=== PATIENT | male | born 1975 | race Caucasian/White ===

== ENCOUNTER 2018-08-24 20:17 | Inpatient (IN) | payer SELFPAY ==
[2018-08-24] MEDS ORDERED: SODIUM CHLORIDE 0.9% 500 ML INFUS.BAG IV ONE (22:22)
--- NOTE | 2018-08-24 22:36 | PDOC ---
History of Present Illness - General Chief Complaint: Redness To Affected Area Stated Complaint: INFECTION IN RT FOOT Time Seen by Provider: 08/24/18 22:09 - History of Present Illness Initial Comments: 08/24/18 22:35 CHIEF COMPLAINT: redness/swelling to foot HISTORY OF PRESENT ILLNESS: 43 yo M with no significant PMH presents to ED with redness and pain to R foot x 5 days. Patient states he received a pedicure 6 days ago and then noticed that he had a "bump" on his right fourth toe a day later. He states that since then the bump has gotten bigger and now he has pain and redness extending all the way up his R foot and ankle. Patient denies any fever but reports chills, has had one episode of vomiting this morning. Denies diarrhea. No recent travel or sick contacts. PAST MEDICAL HISTORY: Denies past medical history FAMILY HISTORY: Denies SOCIAL HISTORY: Denies tobacco, alcohol, illicit drug use. SURGICAL HISTORY: Denies ALLERGIES: No known drug allergies REVIEW OF SYSTEMS General/Constitutional: Denies fever or chills. Denies weakness, weight change. HEENT: Denies change in vision. Denies ear pain or discharge. Denies sore throat. Cardiovascular: Denies chest pain or shortness of breath. Respiratory: Denies cough, wheezing, or hemoptysis. Gastrointestinal: Denies nausea, vomiting, diarrhea or constipation. Denies rectal bleeding. Genitourinary: Denies dysuria, frequency, or change in urination. Musculoskeletal: Swelling and redness to R foot. Skin: Denies rash or easy bruising. Neurologic: Denies headache, vertigo, loss of consciousness, or loss of sensation. PHYSICAL EXAM General Appearance: Well-appearing, appropriately dressed. No apparent distress , no intoxication. HEENT: EOMI, PERRLA, normal ENT inspection, normal voice, TMs normal, pharynx normal. No conjunctival pallor. No photophobia, scleral icterus. Neck: Supple. Trachea midline. No tenderness, rigidity, carotid bruit, stridor , lymphadenopathy, or thyromegaly. Respiratory/Chest: Lungs CTAB. No shortness of breath, chest tenderness, respiratory distress, accessory muscle use. No crackles, rales, rhonchi, stridor , wheezing, dullness Cardiovascular: RRR. S1, S2. No JVD, murmur, bradycardia, tachycardia. Vascular Pulses: Dorsalis-Pedis (R): 2+, Dorsalis-Pedis (L): 2+ Gastrointestinal/Abdominal: Normal bowel sounds. Abdomen soft, non-distended. No tenderness or rebound tenderness. No organomegaly, pulsatile mass, guarding , hernia, hepatomegaly, splenomegaly. Lymphatic: No adenopathy, tenderness. Musculoskeletal/Extremities: Abscess to lateral proximal aspect of R fourth toe with purulent discharge. Erythema extending from toe to right ankle and lower calf with mild TTP. Normal inspection. FROM of all extremities, normal capillary refill. Pelvis Stable. No CVA tenderness. No tenderness to extremities, pedal edema, swelling, erythema or deformity. Integumentary: Appropriate color, dry, warm. 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 Fully oriented, alert. Appropriate mood/affect. Motor strength 5/5. No appreciable EOM palsy, facial droop or sensory deficit. Past History - Past Medical History Allergies/Adverse Reactions: Allergies Allergy/AdvReac Type Severity Reaction Status Date / Time No Known Allergies Allergy Verified 08/24/18 20:27 COPD: No - Suicide/Smoking/Psychosocial Hx Smoking History: Never smoked *Physical Exam - Vital Signs Last Vital Signs Temp Pulse Resp BP Pulse Ox 98.3 F 99 H 18 125/88 97 08/24/18 20:24 08/24/18 20:24 08/24/18 20:24 08/24/18 20:24 08/24/18 20:24 ED Treatment Course - LABORATORY CBC & Chemistry Diagram: 08/24/18 22:57 08/24/18 22:57 - RADIOLOGY Radiology Studies Ordered: Category Date Time Status ANKLE & FOOT-RIGHT* [RAD] Stat Radiology 08/24/18 22:23 Ordered Medical Decision Making - Medical Decision Making 08/24/18 22:39 43 yo M with no significant PMH presents to ED with redness and pain to R foot x 5 days. Ddx: cellulitis, abscess, osteomyelitis, DVT -abscess already draining, expressed purulent discharge -labs -x-ray -fluids -wound cx 08/25/18 01:08 extensive cellulitis of right foot extending up ankle/leg, will admit for obs for first round of abx -clindamycin IV *DC/Admit/Observation/Transfer Diagnosis at time of Disposition: Cellulitis and abscess of foot - Discharge Dispostion Decision to Admit order: Yes - Referrals - Patient Instructions - Post Discharge Activity
[2018-08-24 23:19] LABS: BASO % 0.5 % (0-2.0); EOS % 2.3 % (0-4.5); HEMATOCRIT 40.8 % (35.4-49); HEMOGLOBIN 14.3 GM/dL (11.7-16.9); LYMPH % 20.8 % (8-40); MEAN CELL VOLUME 82.8 fl (80-96); MEAN PLT VOLUME 7.3 fl (7.5-11.1); MONO % 8.5 % (3.8-10.2); NEUT % 67.9 % (42.8-82.8); PLATELET COUNT 290 K/MM3 (134-434); RBC 4.93 M/mm3 (4.00-5.60); RDW 13.6 % (11.9-15.9); WHITE BLOOD COUNT 9.9 K/mm3 (4.0-10.0)
[2018-08-24 23:37] LABS: ALBUMIN 3.9 g/dl (3.4-5.0); BILIRUBIN,TOTAL 0.7 mg/dL (0.2-1); BLOOD UREA NITROGEN 19.2 mg/dL (7-18); CALCIUM 8.4 mg/dL (8.5-10.1); CREATININE 0.9 mg/dL (0.55-1.3); POTASSIUM 3.6 mmol/L (3.5-5.1); TOT PROT 7.5 g/dl (6.4-8.2)
[2018-08-25] MEDS ORDERED: CLINDAMYCIN 600MG PREMIX IVPB 600 MG/50 ML BAG IVPB ONE (01:02)
[2018-08-25] MEDS ORDERED: CLINDAMYCIN 900 MG PREMIX IVPB 900 MG/50 ML BAG IVPB ONE ×2 (01:07→01:31)
--- NOTE | 2018-08-25 02:55 | PN ---
Teaching Attending Note Name of Resident: Jett De Jesus ATTENDING PHYSICIAN STATEMENT I saw and evaluated the patient. I reviewed the resident's note and discussed the case with the resident. I agree with the resident's findings and plan as documented. SUBJECTIVE: Patient is a 43 year old man with no significant PMH presents to ER with redness and pain to Right foot x 5 days. Patient states he received a pedicure 6 days ago and then noticed that he had a "bump" on his right fourth toe a day later. He states that since then the bump has gotten bigger and now he has pain and redness extending all the way up his R foot and ankle. He probed the abscess with a "needle". Patient denies any fever but reports chills, has had one episode of vomiting this morning. Denies diarrhea, headache, chest pain, SOB, dysuria or abdominal pain. No recent travel or sick contacts. His mother has DM. OBJECTIVE: Alert Vital Signs Period Temp Pulse Resp BP Sys/Dsouza Pulse Ox Last 24 Hr 98.3 F-99.2 F 72-99 16-18 125-135/86-88 97-99 HEENT: No Jaundice, eye redness or discharge, PERRLA, EOMI. Normocephalic, atraumatic. External ears are normal and hearing is grossly intact. No nasal discharge. Neck: Supple, nontender. No palpable adenopathy or thyromegaly. No JVD Chest: Good effort. Clear to auscultation and percussion. Heart: Regular. No S3, rub or murmur Abdomen: Not distended, soft, nontender and no HSM. No rebound or guarding. Normal bowel sounds. Ext: Peripheral pulses intact. Right leg edema. Abscess and ulcer to lateral proximal aspect of right fourth toe with purulent discharge. Erythema extending from toe to right ankle and lower calf with mild tenderness. Skin: Warm and dry. No petechiae, rash or ecchymosis. Neuro: Alert. Oriented x3. CN 2-12 grossly intact. Sensation grossly intact in all four extremities and DTR are symmetric. Psych: Appropriate mood and affect. Good insight. Current Medications Generic Name Dose Route Start Last Admin Trade Name Freq PRN Reason Stop Dose Admin Enoxaparin Sodium 40 mg 08/25/18 10:00 Lovenox - SQ DAILY VICKY Abnormal Lab Results 08/24/18 08/24/18 22:57 22:57 MPV 7.3 L Chloride 109 H Anion Gap 7 L BUN 19.2 H Calcium 8.4 L ASSESSMENT AND PLAN: 1. Right fourth toe abscess and RLE cellulitis - Based on family history of DM and exposure at a nail saloon, will treat with IV vancomycin and zosyn pending wound culture report. No gas collection or significant abnormality on foot xray. Will get MRI of the right foot and HbA1c. Consult surgery for I&D. 2. Obesity Counseled on the risks associated with obesity. Will provide patient all the necessary assistance, counseling and positive reinforcement to facilitate weight loss. Consult fisher weir. 3. DVT prophylaxis - Lovenox 40 mg SQ q 24 hours. 4. Advance directives - Full code
--- NOTE | 2018-08-25 03:12 | HP ---
CHIEF COMPLAINT: Cellulitis PCP: None HISTORY OF PRESENT ILLNESS: 43 M with no significant PMH who describes swelling of his fourth toe on his right foot after he got a pedicure for the first time last . He noticed swelling of his toe 2 days later, and he decided to drain it by puncturing it. However after puncturing it, the swelling did not decrease and there was a serous fluid that was slowly draining from it. Prior to puncturing it he did not note any drainage. It was slightly erythematous. The toe was painful, and it was painful to ambulate and wear shoes. He denies anything like this ever happening before. He noted subjective fever with home temperatures of 97 F, and chills 2 days ago, and 1 episode of nausea and vomiting yesterday. The vomitus was described as clear and watery. He denies any chest pain, SOB, abdominal pain, diarrhea, headaches, dizziness, and numbness of the foot. ER course was notable for: (1)Clindamycin 900 mg was given (2)Ankle and Foot X-Ray was done which showed no bony abnormalities and no gas. (3)1L NS was given. Recent Travel: None PAST MEDICAL HISTORY: None Last visit to doctor ~10 years ago PAST SURGICAL HISTORY: None Social History: Smoking:Denies Alcohol:Denies Drugs: Denies Family History: Mother has Diabetes Allergies No Known Allergies Allergy (Verified 08/24/18 20:27) HOME MEDICATIONS: REVIEW OF SYSTEMS In addition to above CONSTITUTIONAL: Subjective fevers and chills Absent: diaphoresis, generalized weakness, malaise, loss of appetite, weight change HEENT: difficulty swallowing Absent: rhinorrhea, nasal congestion, throat pain CARDIOVASCULAR: Absent: chest pain, syncope, palpitations, lightheadedness, RESPIRATORY: Absent: cough, shortness of breath, dyspnea with exertion GASTROINTESTINAL: nausea, vomiting Absent: abdominal pain, abdominal distension,, diarrhea, constipation, melena, hematochezia GENITOURINARY: Absent: dysuria, frequency, urgency, hesitancy, hematuria, flank pain, genital pain MUSCULOSKELETAL: Absent: myalgia, arthralgia, joint swelling, back pain, neck pain SKIN: Absent: rash, itching, pallor NEUROLOGIC: Absent: headache, focal weakness or paresthesias, dizziness, PHYSICAL EXAMINATION Vital Signs - 24 hr 08/24/18 08/24/18 08/25/18 20:24 23:31 03:06 Temperature 98.3 F 99.2 F Pulse Rate 99 H Pulse Rate [ 72 76 Left Radial] Respiratory 18 16 Rate Blood Pressure 125/88 Blood Pressure 128/86 135/87 [Right Arm] O2 Sat by Pulse 97 98 99 Oximetry (%) GENERAL: Awake, alert, and fully oriented, in no acute distress. HEAD: Normal with no signs of trauma. EYES: Pupils equal, round and reactive to light, extraocular movements intact, sclera anicteric, conjunctiva clear. No lid lag. EARS, NOSE, THROAT: Ears normal, nares patent, oropharynx clear without exudates. Moist mucous membranes. NECK: Normal range of motion LUNGS: Breath sounds equal, clear to auscultation bilaterally. No wheezes, and no crackles. No accessory muscle use. HEART: Regular rate and rhythm, normal S1 and S2 without murmur, rub or gallop. ABDOMEN: Soft, nontender, not distended, normoactive bowel sounds. MUSCULOSKELETAL: Normal range of motion at all joints. No bony deformities or tenderness. No CVA tenderness. UPPER EXTREMITIES: 2+ pulses, warm, well-perfused. No cyanosis. No clubbing. No peripheral edema. LOWER EXTREMITIES: 2+ pulses, warm, well-perfused. Right foot, 4th toe, has serous fluid draining abscess on middle phalange. Toe is erythematous. Right foot is warm to touch and swollen. Left foot has no appreciable changes. Laboratory Results - last 24 hr 08/24/18 08/24/18 22:57 22:57 WBC 9.9 RBC 4.93 Hgb 14.3 Hct 40.8 MCV 82.8 MCH 29.0 MCHC 35.0 RDW 13.6 Plt Count 290 MPV 7.3 L Absolute Neuts (auto) 6.7 Neutrophils % 67.9 Lymphocytes % 20.8 Monocytes % 8.5 Eosinophils % 2.3 Basophils % 0.5 Nucleated RBC % 0 Sodium 144 Potassium 3.6 Chloride 109 H Carbon Dioxide 28 Anion Gap 7 L BUN 19.2 H Creatinine 0.9 Est GFR (CKD-EPI)AfAm 122.52 Est GFR (CKD-EPI)NonAf 105.71 Random Glucose 105 Calcium 8.4 L Total Bilirubin 0.7 AST 19 ALT 51 Alkaline Phosphatase 92 Total Protein 7.5 Albumin 3.9 ASSESSMENT/PLAN: 43 M with no significant PMH who presents today with likely diabetic foot injury due to FMH of diabetes, rapid spread of injury from toe to swelling of foot, and drainage of injury. 1) Diabetic foot wound Vancomycin 1500 mg BID Zoysn 3.375 Q8H ID consult HbA1c 2) Dysphagia vs GERD Patient noted some dysphagia and reflux symptoms upon ROS. Refer to outpatient GI 3)Lack of health maintenance Provide resources for patient to obtain medical insurance Refer to resident clinic DVT Prophylaxis: Lovenox 40 mg SQ QDaily F: No fluids E: Trend BMP N: Regular diet Dispo: Admit to medicine floors Problem List - Problem (1) Cellulitis and abscess of foot Code(s): L03.119 - CELLULITIS OF UNSPECIFIED PART OF LIMB; L02.619 - CUTANEOUS ABSCESS OF UNSPECIFIED FOOT Visit type - Emergency Visit Emergency Visit: Yes ED Registration Date: 08/25/18 Care time: The patient presented to the Emergency Department on the above date and was hospitalized for further evaluation of their emergent condition. - New Patient This patient is new to me today: Yes Date on this admission: 08/25/18 - Critical Care Critical Care patient: No ATTENDING PHYSICIAN STATEMENT I saw and evaluated the patient. I reviewed the resident's note and discussed the case with the resident. I agree with the resident's findings and plan as documented. SUBJECTIVE: OBJECTIVE: ASSESSMENT AND PLAN:
[2018-08-25] MEDS ORDERED: VANCOMYCIN HCL 1,500 MG in DEXTROSE 5%-WATER - 500 ML IVPB SCH ×2 (04:30→12:00)
[2018-08-25 05:34] VITALS: BMI 30.3
[2018-08-25] MEDS: VANCOMYCIN HCL 1,500 MG in DEXTROSE 5%-WATER - 500 ML IVPB SCH (05:43)
[2018-08-25] MEDS ORDERED: DEXTROSE 5%-WATER - 50 ML IVPB ONE ×2 (05:56→09:05)
[2018-08-25] MEDS ORDERED: PIPERACILLIN/TAZOBACTAM 3.375 GM VIAL IVPB ONE ×2 (05:56→09:05)
[2018-08-25] MEDS: PIPERACILLIN/TAZOB 3.375 GM 3.375 GM in DEXTROSE 5%-WATER - 50 ML IVPB SCH ×2 (06:00→09:34)
[2018-08-25] MEDS: ENOXAPARIN NA (PORCINE) 40 MG/0.4 ML DISP.SYRIN SQ SCH (09:27)
--- NOTE | 2018-08-25 11:59 | PN ---
Progress Note, Physician Chief Complaint: right foot wound History of Present Illness: no acute events overnight, seen and examined at bedside. Feeling well, afebrile , no pain. - Current Medication List Current Medications: Active Medications Enoxaparin Sodium (Lovenox -) 40 mg SQ DAILY VICKY Last Admin: 08/25/18 09:27 Dose: 40 mg Vancomycin HCl 1,500 mg/ (Dextrose) 500 mls @ 250 mls/hr IVPB Q12H VICKY; Protocol Piperacillin Sod/Tazobactam (Sod 3.375 gm/ Dextrose) 50 mls @ 100 mls/hr IVPB Q8H-IV VICKY; Protocol Piperacillin Sod/Tazobactam (Sod 3.375 gm/ Dextrose) 50 mls @ 100 mls/hr IVPB Q8H-IV VICKY; Protocol Stop: 08/25/18 18:29 Last Admin: 08/25/18 09:34 Dose: 100 mls/hr Vancomycin HCl 1,500 mg/ (Dextrose) 500 mls @ 250 mls/hr IVPB Q12H VICKY; Protocol Stop: 08/26/18 01:59 - Objective Vital Signs: Vital Signs Temperature 98.5 F 08/25/18 06:00 Pulse Rate 71 08/25/18 06:00 Respiratory Rate 18 08/25/18 06:00 Blood Pressure 120/79 08/25/18 06:00 O2 Sat by Pulse Oximetry (%) 96 08/25/18 05:22 Constitutional: Yes: Well Nourished, No Distress, Calm Cardiovascular: Yes: WNL, Regular Rate and Rhythm Respiratory: Yes: WNL, Regular, CTA Bilaterally Gastrointestinal: Yes: WNL, Normal Bowel Sounds, Soft Extremities: Yes: Other (right pedal edema, right fourth toe open lesion draining serosanguinous fluid) Edema: No (1+ edema in right foot) Edema: RLE: 1+ Peripheral Pulses WNL: Yes Labs: CBC, BMP 08/24/18 22:57 08/24/18 22:57 Problem List - Problems (1) Cellulitis and abscess of foot Code(s): L03.119 - CELLULITIS OF UNSPECIFIED PART OF LIMB; L02.619 - CUTANEOUS ABSCESS OF UNSPECIFIED FOOT (2) Diabetes mellitus Code(s): E11.9 - TYPE 2 DIABETES MELLITUS WITHOUT COMPLICATIONS (3) Diabetes mellitus Code(s): E11.9 - TYPE 2 DIABETES MELLITUS WITHOUT COMPLICATIONS Assessment/Plan 43 year old male presents with right foot pain, swelling, starting from right 4th toe open lesion. 1) Right foot cellulitis, likely diabetic foot wound, rule out osteomyelitis -MRI right foot ordered -wound cultures pending -IV antibiotics -consult podiatry -wound care -ID eval 2) Hyperglycemia, no established diagnosis of DM2 -HbA1C pending -ISS 3) GERD -PPI trial -outpatient follow-up -patient does not have insurance, PCP -social work eval -should follow-up in resident clinic
--- NOTE | 2018-08-25 12:15 | PN ---
Progress Note (short form) - Note Progress Note: ID CONSULT DICTATED CELULITIS/ SOFT TISSUE ABSCESS R FOOT AWAIT C/S MRI EMPIRIC VANCOMYCIN/ CEFTRIAXONE
[2018-08-25] MEDS ORDERED: DEXTROSE 5%-WATER 100 ML IVPB ONE (12:24)
[2018-08-25] MEDS: CEFTRIAXONE 2 GM in DEXTROSE 5%-WATER 100 ML IVPB SCH (12:27)
[2018-08-25] MEDS: VANCOMYCIN 1 GRAM (PRE-DOCKED) 1,000 MG/250 ML BAG IVPB SCH (12:27)
[2018-08-25 12:51] LABS: BASO % 0.3 % (0-2.0); EOS % 2.5 % (0-4.5); HEMATOCRIT 41.4 % (35.4-49); HEMOGLOBIN 14.5 GM/dL (11.7-16.9); LYMPH % 22.9 % (8-40); MCH 29.1 pg (25.7-33.7); MEAN CELL VOLUME 83.1 fl (80-96); MEAN PLT VOLUME 7.6 fl (7.5-11.1); NEUT % 69.3 % (42.8-82.8); PLATELET COUNT 294 K/MM3 (134-434); RBC 4.98 M/mm3 (4.00-5.60); RDW 13.3 % (11.9-15.9); WHITE BLOOD COUNT 6.9 K/mm3 (4.0-10.0)
[2018-08-25 13:24] LABS: ALBUMIN 3.7 g/dl (3.4-5.0); BILIRUBIN,TOTAL 0.9 mg/dL (0.2-1); BLOOD UREA NITROGEN 15.7 mg/dL (7-18); CALCIUM 8.6 mg/dL (8.5-10.1); CREATININE 0.8 mg/dL (0.55-1.3); MAGNESIUM 2.3 mg/dL (1.8-2.4); POTASSIUM 3.6 mmol/L (3.5-5.1); TOT PROT 7.1 g/dl (6.4-8.2)
[2018-08-26] MEDS: VANCOMYCIN 1 GRAM (PRE-DOCKED) 1,000 MG/250 ML BAG IVPB SCH ×2 (00:44→12:10)
[2018-08-26] MEDS: VANCOMYCIN HCL 1,500 MG in DEXTROSE 5%-WATER - 500 ML IVPB SCH (06:27)
[2018-08-26] MEDS: PIPERACILLIN/TAZOB 3.375 GM 3.375 GM in DEXTROSE 5%-WATER - 50 ML IVPB SCH (06:27)
[2018-08-26 07:56] LABS: BASO % 0.4 % (0-2.0); EOS % 4.4 % (0-4.5); HEMATOCRIT 39.4 % (35.4-49); HEMOGLOBIN 13.9 GM/dL (11.7-16.9); MCH 29.2 pg (25.7-33.7); MCHC 35.4 g/dl (32.0-35.9); MEAN CELL VOLUME 82.5 fl (80-96); MEAN PLT VOLUME 7.6 fl (7.5-11.1); MONO % 6.9 % (3.8-10.2); NEUT % 63.3 % (42.8-82.8); PLATELET COUNT 288 K/MM3 (134-434); RBC 4.77 M/mm3 (4.00-5.60); RDW 13.7 % (11.9-15.9); WHITE BLOOD COUNT 6.5 K/mm3 (4.0-10.0)
[2018-08-26 08:12] LABS: BLOOD UREA NITROGEN 11.2 mg/dL (7-18); CALCIUM 8.8 mg/dL (8.5-10.1); CREATININE 0.6 mg/dL (0.55-1.3); POTASSIUM 4.3 mmol/L (3.5-5.1)
[2018-08-26] MEDS ORDERED: DEXTROSE 5%-WATER 100 ML IVPB ONE (08:50)
[2018-08-26] MEDS: ENOXAPARIN NA (PORCINE) 40 MG/0.4 ML DISP.SYRIN SQ SCH (09:09)
[2018-08-26] MEDS: CEFTRIAXONE 2 GM in DEXTROSE 5%-WATER 100 ML IVPB SCH (09:09)
--- NOTE | 2018-08-26 11:09 | PN ---
Progress Note (short form) - Note Progress Note: PT presents for podiatry consult with infected left foot . PT went for pedicure last week developed infection started spreading up leg. Admitted for cellulitis . Denies CP SOB CALF PAIN PMH Denies DM, cardiac , asthma , seizures or heart disease NKDA ERNESTO Palpable pedal pulses NVSI (++) edema (++) erythema No fluctuance or crepitus on palpation Negative adenopathy No signs of lymphangiitis (++) interdigital maceration with tinea pedis noted Impression Cellultis left fot Plan: Will review Xrays MRI pending Based on MRI results will finalize treatment plan Thank you for courtesy of this consult
--- NOTE | 2018-08-26 11:57 | PN ---
Progress Note, Physician Chief Complaint: cellulitis and abscess of foot History of Present Illness: Patient is a 43 male with a significant past medical history of edema swelling of his fourth toe on his right foot after he got a pedicure for the first time last . He noticed swelling of his toe 2 days later, and he decided to drain it by puncturing it. However after puncturing it, the swelling did not decrease and there was a serous fluid that was slowly draining from it. He is being admitted for IV antibiotics for cellulitis. - Current Medication List Current Medications: Active Medications Enoxaparin Sodium (Lovenox -) 40 mg SQ DAILY VICKY Last Admin: 08/26/18 09:09 Dose: 40 mg Vancomycin HCl (Vancomycin (Pre-Docked)) 1,000 mg in 250 mls @ 166.667 mls/hr IVPB Q12H VICKY; Protocol Last Admin: 08/26/18 00:44 Dose: 166.667 mls/hr Ceftriaxone Sodium 2 gm/ (Dextrose) 100 mls @ 100 mls/hr IVPB DAILY VICKY; Protocol Last Admin: 08/26/18 09:09 Dose: 100 mls/hr - Objective Vital Signs: Vital Signs Temperature 98.5 F 08/26/18 10:00 Pulse Rate 61 08/26/18 10:00 Respiratory Rate 18 08/26/18 10:00 Blood Pressure 117/73 08/26/18 10:00 O2 Sat by Pulse Oximetry (%) 97 08/26/18 09:00 Constitutional: Yes: Well Nourished, No Distress, Calm Eyes: Yes: WNL HENT: Yes: WNL Neck: Yes: WNL Cardiovascular: Yes: WNL, Regular Rate and Rhythm Respiratory: Yes: WNL, Regular, CTA Bilaterally Gastrointestinal: Yes: WNL, Normal Bowel Sounds ...Rectal Exam: Yes: WNL Genitourinary: Yes: WNL Musculoskeletal: Yes: WNL Extremities: Yes: WNL Edema: RLE: Trace (fourth toe on his right foot) Integumentary: Yes: WNL Wound/Incision: Yes: Clean/Dry, Reddened Neurological: Yes: WNL ...Motor Strength: WNL Psychiatric: Yes: WNL Labs: CBC, BMP 08/26/18 06:30 08/26/18 06:30 Problem List - Problems (1) Cellulitis and abscess of foot Assessment/Plan: Cellulitis of right foot Culture/sensitivies with presumptive mrsa on Vancomycin and Ceftriaxone per ID MRI of lower ext pending to rule out osteo Patient remains afebrile, vitals are stable. Patient does not have hx of diabetes and take no home meds [id number] 5.2 will order surgical shoe. Podiatry following Code(s): L03.119 - CELLULITIS OF UNSPECIFIED PART OF LIMB; L02.619 - CUTANEOUS ABSCESS OF UNSPECIFIED FOOT (2) Prophylactic measure Assessment/Plan: fen tolerating PO monitor electrolytes prophy Lovenox ambulation monitor for any drainage/wound care Code(s): Z29.9 - ENCOUNTER FOR PROPHYLACTIC MEASURES, UNSPECIFIED Visit type - Emergency Visit Emergency Visit: Yes ED Registration Date: 08/25/18 Care time: The patient presented to the Emergency Department on the above date and was hospitalized for further evaluation of their emergent condition. - New Patient This patient is new to me today: Yes Date on this admission: 08/26/18 - Critical Care Critical Care patient: No - Discharge Referral Referred to [facility] Med P.C.: No
[2018-08-26] MEDS ORDERED: ACETAMINOPHEN 325 MG TABLET (FP) PO PRN (12:02)
[2018-08-26] MEDS ORDERED: KETOROLAC TROMETHAMINE 10 MG TABLET PO PRN (12:03)
--- NOTE | 2018-08-26 17:09 | PN ---
Progress Note, Physician - Current Medication List Current Medications: Active Medications Acetaminophen (Tylenol -) 650 mg PO Q6H PRN PRN Reason: PAIN LEVEL 1-5 Enoxaparin Sodium (Lovenox -) 40 mg SQ DAILY VICKY Last Admin: 08/26/18 09:09 Dose: 40 mg Vancomycin HCl (Vancomycin (Pre-Docked)) 1,000 mg in 250 mls @ 166.667 mls/hr IVPB Q12H VICKY; Protocol Last Admin: 08/26/18 12:10 Dose: 166.667 mls/hr Ceftriaxone Sodium 2 gm/ (Dextrose) 100 mls @ 100 mls/hr IVPB DAILY VICKY; Protocol Last Admin: 08/26/18 09:09 Dose: 100 mls/hr Ketorolac Tromethamine (Toradol) 10 mg PO Q6HPO PRN PRN Reason: PAIN LEVEL 7 - 10 Stop: 08/31/18 17:59 - Objective Vital Signs: Vital Signs Temperature 98.1 F 08/26/18 14:25 Pulse Rate 56 L 08/26/18 14:25 Respiratory Rate 18 08/26/18 14:25 Blood Pressure 107/71 08/26/18 14:25 O2 Sat by Pulse Oximetry (%) 97 08/26/18 09:00 Labs: CBC, BMP 08/26/18 06:30 08/26/18 06:30
--- NOTE | 2018-08-26 19:16 | CONS ---
DATE OF CONSULTATION: DATE OF DICTATION: 08/26/2018 INFECTIOUS DISEASE CONSULTATION HISTORY OF PRESENT ILLNESS: The patient is a 43-year-old male who was evaluated for cellulitis of the right foot. The patient had developed onset of right foot pain and swelling after receiving a pedicure approximately 6 days ago. He reported developing a "bump" on his right 4th toe from which he tried to drain fluid with a needle. He subsequently developed worsening erythema, warmth and swelling involving the right foot. He presented to the emergency room where he was admitted with cellulitis of the right foot. Cultures were obtained, and he was empirically treated with vancomycin and Zosyn. SOCIAL HISTORY: Patient originally from [place], has been living in the [facility] for years. Nonsmoker, nondrinker, states he tested HIV negative in the recent past. PAST MEDICAL HISTORY: Negative. The patient is nondiabetic. ALLERGIES: No known allergies. MEDICATION: None. LABORATORY DATA: White count 9.9, creatinine 0.9. X-ray, soft tissue swelling. PHYSICAL EXAMINATION: General: On exam, he is awake and alert, nontoxic appearing. Vital signs: Temperature 98.5, blood pressure 120/79, pulse 71 regular, respirations 18 per minute. Cardiovascular: Heart sounds S1, S2. Lungs: Clear. Abdomen: Soft, nontender. Extremities: Examination of the right foot: There is swelling of the 4th right toe with swelling extending to the dorsum of the foot. There is erythema involving the 3rd, 4th, and 5th toes extending to the dorsum of the foot. No crepitus or fluctuance. IMPRESSION: 1. Cellulitis of the right foot. 2. Rule out soft tissue abscess right 5th toe. Await cultures and MRI. Empiric antibiotic coverage with vancomycin and ceftriaxone. Podiatry evaluation. Thank you for the kind referral. ERIC CRUZ M.D. [facility]/[id number]
[2018-08-27] MEDS: VANCOMYCIN 1 GRAM (PRE-DOCKED) 1,000 MG/250 ML BAG IVPB SCH ×2 (00:23→12:03)
[2018-08-27 08:08] LABS: ALBUMIN 3.5 g/dl (3.4-5.0); BILIRUBIN,TOTAL 0.4 mg/dL (0.2-1); BLOOD UREA NITROGEN 11.4 mg/dL (7-18); CALCIUM 8.9 mg/dL (8.5-10.1); CREATININE 0.7 mg/dL (0.55-1.3); MAGNESIUM 2.4 mg/dL (1.8-2.4); POTASSIUM 4.3 mmol/L (3.5-5.1); TOT PROT 6.8 g/dl (6.4-8.2)
--- NOTE | 2018-08-27 08:31 | PN ---
Physical Exam: SUBJECTIVE: Patient seen and examined. Pt laying bed with no signs or symptoms of distress. Pt denies CP, SOB, Fever Chills, N/V/D ABd pain OBJECTIVE: Vital Signs Period Temp Pulse Resp BP Sys/Dsouza Pulse Ox Last 24 Hr 97.8 F-98.6 F 56-61 18-20 107-125/71-82 97-97 GENERAL: The patient is awake, alert, and fully oriented, in no acute distress. HEAD: Normal with no signs of trauma. EYES: PERRL, extraocular movements intact, sclera anicteric, conjunctiva clear. No ptosis. ENT: Ears normal, nares patent, oropharynx clear without exudates, moist mucous membranes. NECK: Trachea midline, full range of motion, supple. LUNGS: Breath sounds equal, clear to auscultation bilaterally, no wheezes, no crackles. HEART: Regular rate and rhythm, S1, S2 without murmur ABDOMEN: Soft, nontender, nondistended, normoactive bowel sounds, no guarding, no rebound, no hepatosplenomegaly EXTREMITIES: 2+ pulses, warm, well-perfused, (4th Toe on his Right foot and anterior surface of right foot) NEUROLOGICAL: Normal speech, gait not observed. PSYCH: Normal mood, normal affect. SKIN: Warm, dry, normal turgor, no rashes or lesions noted Laboratory Results - last 24 hr 08/26/18 08/27/18 06:30 06:32 WBC 6.5 RBC 4.77 Hgb 13.9 Hct 39.4 MCV 82.5 MCH 29.2 MCHC 35.4 RDW 13.7 Plt Count 288 MPV 7.6 Absolute Neuts (auto) 4.1 Neutrophils % 63.3 Lymphocytes % 25.0 Monocytes % 6.9 Eosinophils % 4.4 Basophils % 0.4 Nucleated RBC % 0 Sodium 140 Potassium 4.3 Chloride 106 Carbon Dioxide 30 Anion Gap 4 L BUN 11.4 Creatinine 0.7 Est GFR (CKD-EPI)AfAm 135.86 Est GFR (CKD-EPI)NonAf 117.22 Random Glucose 94 Calcium 8.9 Magnesium 2.4 Total Bilirubin 0.4 AST 23 ALT 52 Alkaline Phosphatase 91 Total Protein 6.8 Albumin 3.5 Active Medications Generic Name Dose Route Start Last Admin Trade Name Freq PRN Reason Stop Dose Admin Acetaminophen 650 mg 08/26/18 12:02 Tylenol - PO Q6H PRN PAIN LEVEL 1-5 Enoxaparin Sodium 40 mg 08/25/18 10:00 08/26/18 09:09 Lovenox - SQ 40 mg DAILY VICKY Administration Vancomycin HCl 1,000 mg in 250 mls @ 166.667 mls/hr 08/25/18 12:15 08/27/18 00:23 Vancomycin (Pre-Docked) IVPB 166.667 mls/hr Q12H VICKY Administration Protocol Ceftriaxone Sodium 2 gm/ 100 mls @ 100 mls/hr 08/25/18 12:30 08/26/18 09:09 Dextrose IVPB 100 mls/hr DAILY VICKY Administration Protocol Ketorolac Tromethamine 10 mg 08/26/18 12:03 Toradol PO 08/31/18 17:59 Q6HPO PRN PAIN LEVEL 7 - 10 ASSESSMENT/PLAN: 43 Year old male PMHx sig for swelling of his 4th right toe. Amitted for Cellulitis Cellulitis and abscess of foot -Cellulitis of right foot -Culture/sensitivies with presumptive mrsa -on Vancomycin and Ceftriaxone per ID -MRI of lower ext pending to rule out osteo -Patient remains afebrile, vitals are stable. -Patient does not have hx of diabetes and take no home meds -hmga1c 5.2 -Podiatry following FEN tolerating PO monitor electrolytes Prophylaxis Lovenox ambulation monitor for any drainage/wound care Visit type - Emergency Visit Emergency Visit: Yes ED Registration Date: 08/25/18 Care time: The patient presented to the Emergency Department on the above date and was hospitalized for further evaluation of their emergent condition. - New Patient This patient is new to me today: Yes Date on this admission: 08/27/18 - Critical Care Critical Care patient: No
[2018-08-27 09:12] LABS: BASO % 0.7 % (0-2.0); EOS % 6.2 % (0-4.5); HEMATOCRIT 40.5 % (35.4-49); HEMOGLOBIN 14.2 GM/dL (11.7-16.9); LYMPH % 29.8 % (8-40); MCH 28.9 pg (25.7-33.7); MEAN CELL VOLUME 82.6 fl (80-96); MEAN PLT VOLUME 7.8 fl (7.5-11.1); MONO % 8.6 % (3.8-10.2); NEUT % 54.7 % (42.8-82.8); PLATELET COUNT 325 K/MM3 (134-434); RDW 13.2 % (11.9-15.9)
[2018-08-27] MEDS ORDERED: DEXTROSE 5%-WATER 100 ML IVPB ONE (10:26)
[2018-08-27] MEDS: ENOXAPARIN NA (PORCINE) 40 MG/0.4 ML DISP.SYRIN SQ SCH (10:31)
[2018-08-27] MEDS: CEFTRIAXONE 2 GM in DEXTROSE 5%-WATER 100 ML IVPB SCH (10:32)
[2018-08-28] MEDS: VANCOMYCIN 1 GRAM (PRE-DOCKED) 1,000 MG/250 ML BAG IVPB SCH ×2 (00:46→12:14)
[2018-08-28 07:13] LABS: BASO % 0.6 % (0-2.0); EOS % 6.4 % (0-4.5); HEMATOCRIT 42.8 % (35.4-49); HEMOGLOBIN 14.8 GM/dL (11.7-16.9); LYMPH % 29.6 % (8-40); MCH 28.9 pg (25.7-33.7); MCHC 34.6 g/dl (32.0-35.9); MEAN CELL VOLUME 83.5 fl (80-96); MEAN PLT VOLUME 7.6 fl (7.5-11.1); MONO % 7.9 % (3.8-10.2); NEUT % 55.5 % (42.8-82.8); PLATELET COUNT 335 K/MM3 (134-434); RBC 5.12 M/mm3 (4.00-5.60); RDW 13.2 % (11.9-15.9); WHITE BLOOD COUNT 6.1 K/mm3 (4.0-10.0)
[2018-08-28 07:35] LABS: ALBUMIN 3.5 g/dl (3.4-5.0); BILIRUBIN,TOTAL 0.4 mg/dL (0.2-1); BLOOD UREA NITROGEN 10.2 mg/dL (7-18); CALCIUM 8.9 mg/dL (8.5-10.1); CREATININE 0.8 mg/dL (0.55-1.3); MAGNESIUM 2.4 mg/dL (1.8-2.4); POTASSIUM 4.7 mmol/L (3.5-5.1)
[2018-08-28] MEDS ORDERED: DEXTROSE 5%-WATER 100 ML IVPB ONE (08:38)
--- NOTE | 2018-08-28 08:56 | PN ---
Physical Exam: SUBJECTIVE: Patient seen and examined. Patient seen and examined. Pt laying bed with no signs or symptoms of distress. Pt denies CP, SOB, Fever Chills, N/V/ D ABd pain. Pt states he feels pressure like pain in right foot when he stands up. OBJECTIVE: Vital Signs Period Temp Pulse Resp BP Sys/Dsouza Pulse Ox Last 24 Hr 97.5 F-99.0 F 60-86 19-22 110-149/71-97 97-98 GENERAL: The patient is awake, alert, and fully oriented, in no acute distress. HEAD: Normal with no signs of trauma. EYES: PERRL, extraocular movements intact, sclera anicteric, conjunctiva clear. No ptosis. ENT: Ears normal, nares patent, oropharynx clear without exudates, moist mucous membranes. NECK: Trachea midline, full range of motion, supple. LUNGS: Breath sounds equal, clear to auscultation bilaterally, no wheezes, no crackles. HEART: Regular rate and rhythm, S1, S2 without murmur ABDOMEN: Soft, nontender, nondistended, normoactive bowel sounds, no guarding, no rebound, no hepatosplenomegaly EXTREMITIES: 2+ pulses, warm, well-perfused, edema 4th Toe on his Right foot and anterior surface of right foot) NEUROLOGICAL: Normal speech, gait not observed. PSYCH: Normal mood, normal affect. SKIN: Warm, dry, normal turgor, no rashes or lesions noted, wound on 4th right toe Laboratory Results - last 24 hr 08/27/18 08/28/18 08/28/18 06:32 06:40 06:40 WBC 6.0 6.1 RBC 4.90 5.12 Hgb 14.2 14.8 Hct 40.5 42.8 MCV 82.6 83.5 MCH 28.9 28.9 MCHC 35.0 34.6 RDW 13.2 13.2 Plt Count 325 335 MPV 7.8 7.6 Absolute Neuts (auto) 3.3 3.4 Neutrophils % 54.7 55.5 Lymphocytes % 29.8 29.6 Monocytes % 8.6 7.9 Eosinophils % 6.2 H 6.4 H Basophils % 0.7 0.6 Nucleated RBC % 0 0 Sodium 142 Potassium 4.7 Chloride 106 Carbon Dioxide 30 Anion Gap 5 L BUN 10.2 Creatinine 0.8 Est GFR (CKD-EPI)AfAm 128.60 Est GFR (CKD-EPI)NonAf 110.96 Random Glucose 94 Calcium 8.9 Magnesium 2.4 Total Bilirubin 0.4 AST 23 ALT 52 Alkaline Phosphatase 98 Total Protein 7.0 Albumin 3.5 Active Medications Generic Name Dose Route Start Last Admin Trade Name Freq PRN Reason Stop Dose Admin Acetaminophen 650 mg 08/26/18 12:02 Tylenol - PO Q6H PRN PAIN LEVEL 1-5 Enoxaparin Sodium 40 mg 08/25/18 10:00 08/27/18 10:31 Lovenox - SQ 40 mg DAILY VICKY Administration Vancomycin HCl 1,000 mg in 250 mls @ 166.667 mls/hr 08/25/18 12:15 08/28/18 00:46 Vancomycin (Pre-Docked) IVPB 166.667 mls/hr Q12H VICKY Administration Protocol Ceftriaxone Sodium 2 gm/ 100 mls @ 100 mls/hr 08/25/18 12:30 08/27/18 10:32 Dextrose IVPB 100 mls/hr DAILY VICKY Administration Protocol Ketorolac Tromethamine 10 mg 08/26/18 12:03 Toradol PO 08/31/18 17:59 Q6HPO PRN PAIN LEVEL 7 - 10 ASSESSMENT/PLAN: 43 Year old male PMHx sig for swelling of his 4th right toe . Admitted for Cellulitis Cellulitis and abscess of foot -Cellulitis of right foot -Culture/sensitivies with presumptive mrsa -Vancomycin per ID -MRI of lower ext - Negative for Osteomyelitis and Tenosynovitis The palpable soft tissue mass 2 x 1.2 x 1.2 cm lateral to the proximal phalanx of the fourth digit is compatible with abscess collection or less likely a mass lesion. Aspiration under sonography to be considered for further and definitive evaluation. If of the aspiration did not document the infectious material MRI with contrast to be considered for definitive evaluation to exclude the less likely possibility of underlying mass lesion. -Patient remains afebrile, vitals are stable. -Patient does not have hx of diabetes and take no home meds -HgbA1c 5.2 -Podiatry Following FEN -Tolerating PO -Monitor electrolytes and replenish as necessary -Regular Diet DVT Prophylaxis -Lovenox 40mg SQ Daily -Ambulation -Monitor for any drainage/wound care Visit type - Emergency Visit Emergency Visit: Yes ED Registration Date: 08/25/18 Care time: The patient presented to the Emergency Department on the above date and was hospitalized for further evaluation of their emergent condition. - New Patient This patient is new to me today: No - Critical Care Critical Care patient: No
[2018-08-28] MEDS: CEFTRIAXONE 2 GM in DEXTROSE 5%-WATER 100 ML IVPB SCH (09:03)
[2018-08-28] MEDS: ENOXAPARIN NA (PORCINE) 40 MG/0.4 ML DISP.SYRIN SQ SCH (09:06)
--- NOTE | 2018-08-28 12:14 | PN ---
Progress Note (short form) - Note Progress Note: PT presents for podiatry consult with infected left foot . PT went for pedicure last week developed infection started spreading up leg. Had MRI done. Denies any pain. Feeling better. MRI: interspace//4th digit lateral aspect abcess, no signs of OM. ERNESTO Palpable pedal pulses NVSI (++) edema (++) erythema mild fluctuancenoted Negative adenopathy No signs of lymphangiitis (++) interdigital maceration with tinea pedis noted Impression Cellultis left foot with overarching tinea infection; underlying abscess. Plan: Evaluated and reviewed MRI abcess Bedside I and D performed with needle aspiration; roughly 5 CC of seropurlence drainage Will f/u in the morning IF any signs of continued infection or fluctuance in the area will benefit from doing I and D in the OR. Will f/u.
[2018-08-29] MEDS: VANCOMYCIN 1 GRAM (PRE-DOCKED) 1,000 MG/250 ML BAG IVPB SCH ×2 (00:35→13:18)
--- NOTE | 2018-08-29 07:46 | PN ---
Progress Note (short form) - Note Progress Note: PT presents for podiatry consult with infected left foot . States since bedside procedure nearly all pain has resolved in the foot and states his swelling and redness is down a swell. Denies any other complaints. Feels much better. MRI: interspace//4th digit lateral aspect abcess, no signs of OM. ERNESTO Palpable pedal pulses NVSI minimal edema, negative erythema noted , drainage site noted, no active drainage noted at this time , diminished maceration, continued mild tinea, no fluctuance or palpable abscess noted now. Negative adenopathy No signs of lymphangiitis Impression Cellultis left foot with overarching tinea infection; underlying abscess. Plan: Evaluated and reviewed AFter bedside I and D patient feels much better Abx per ID, but from pod standpoint is now stable and dc planning. 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
[2018-08-29 07:52] LABS: BASO % 0.7 % (0-2.0); EOS % 5.9 % (0-4.5); HEMATOCRIT 43.4 % (35.4-49); HEMOGLOBIN 15.3 GM/dL (11.7-16.9); MCH 29.2 pg (25.7-33.7); MCHC 35.2 g/dl (32.0-35.9); MEAN PLT VOLUME 7.5 fl (7.5-11.1); MONO % 6.9 % (3.8-10.2); NEUT % 54.5 % (42.8-82.8); PLATELET COUNT 366 K/MM3 (134-434); RBC 5.22 M/mm3 (4.00-5.60); RDW 13.3 % (11.9-15.9); WHITE BLOOD COUNT 6.9 K/mm3 (4.0-10.0)
[2018-08-29 08:08] LABS: ALBUMIN 3.8 g/dl (3.4-5.0); BILIRUBIN,TOTAL 0.4 mg/dL (0.2-1); BLOOD UREA NITROGEN 10.6 mg/dL (7-18); CALCIUM 9.1 mg/dL (8.5-10.1); CREATININE 0.7 mg/dL (0.55-1.3); MAGNESIUM 2.5 mg/dL (1.8-2.4); POTASSIUM 4.1 mmol/L (3.5-5.1); TOT PROT 7.5 g/dl (6.4-8.2)
--- NOTE | 2018-08-29 08:11 | PN ---
Progress Note, Physician History of Present Illness: Patient is a 43 male with a significant past medical history of edema swelling of his fourth toe on his right foot after he got a pedicure for the first time last . He noticed swelling of his toe 2 days later, and he decided to drain it by puncturing it. However after puncturing it, the swelling did not decrease and there was a serous fluid that was slowly draining from it. He was admitted for IV antibiotics for cellulitis. - Current Medication List Current Medications: Active Medications Acetaminophen (Tylenol -) 650 mg PO Q6H PRN PRN Reason: PAIN LEVEL 1-5 Enoxaparin Sodium (Lovenox -) 40 mg SQ DAILY VICKY Last Admin: 08/28/18 09:06 Dose: 40 mg Vancomycin HCl (Vancomycin (Pre-Docked)) 1,000 mg in 250 mls @ 166.667 mls/hr IVPB Q12H [facility]; Protocol Last Admin: 08/29/18 00:35 Dose: 166.667 mls/hr Ketorolac Tromethamine (Toradol) 10 mg PO Q6HPO PRN PRN Reason: PAIN LEVEL 7 - 10 Stop: 08/31/18 17:59 - Objective Vital Signs: Vital Signs Temperature 97.9 F 08/29/18 06:00 Pulse Rate 75 08/29/18 06:00 Respiratory Rate 20 08/29/18 06:00 Blood Pressure 126/71 08/29/18 06:00 O2 Sat by Pulse Oximetry (%) 97 08/28/18 21:00 Constitutional: Yes: Well Nourished, No Distress, Calm Eyes: Yes: WNL, Conjunctiva Clear, EOM Intact HENT: Yes: WNL, Atraumatic, Normocephalic Neck: Yes: WNL, Supple, Trachea Midline Cardiovascular: Yes: WNL, Regular Rate and Rhythm Respiratory: Yes: WNL, Regular, CTA Bilaterally Gastrointestinal: Yes: WNL, Normal Bowel Sounds, Soft Genitourinary: Yes: WNL Musculoskeletal: Yes: WNL Extremities: Yes: WNL, Other Edema: No Peripheral Pulses WNL: Yes Integumentary: Yes: WNL Wound/Incision: Yes: Other (left 4th toe c/d/i s/p I& D at bedside) Neurological: Yes: WNL, Alert, Oriented ...Motor Strength: WNL Psychiatric: Yes: WNL, Alert, Oriented Labs: CBC, BMP 08/29/18 06:35 Problem List - Problems (1) Cellulitis and abscess of foot Assessment/Plan: s/p I&D at bedside by Dr Martinez, no drainage noted wound cx with MSSA no osteo seen on MRI c/w antibiotics, changed from ceftriaxone to augmentin discharge to home tomorrow Code(s): L03.119 - CELLULITIS OF UNSPECIFIED PART OF LIMB; L02.619 - CUTANEOUS ABSCESS OF UNSPECIFIED FOOT (2) Prophylactic measure Assessment/Plan: FEN regular diet no need for additional IVF monitor electrolytes DVT continue lovenox while in aptient encourage ambulation Dispo maintain as in patient full code discharge tomorrow if remains afebrile with change to PO abx Code(s): Z29.9 - ENCOUNTER FOR PROPHYLACTIC MEASURES, UNSPECIFIED Visit type - Emergency Visit Emergency Visit: Yes ED Registration Date: 08/25/18 Care time: The patient presented to the Emergency Department on the above date and was hospitalized for further evaluation of their emergent condition. - New Patient This patient is new to me today: Yes Date on this admission: 08/29/18 - Critical Care Critical Care patient: No - Discharge Referral Referred to [facility] No
[2018-08-29] MEDS: ENOXAPARIN NA (PORCINE) 40 MG/0.4 ML DISP.SYRIN SQ SCH (11:21)
[2018-08-29] MEDS ORDERED: PT OWN MED DRAWER 7, Y5N ONE (13:16)
--- NOTE | 2018-08-29 15:47 | PN ---
Progress Note, Physician History of Present Illness: NO C/O FOOT PAIN SWELLING / ERYTHEMA IMPROVED SOFT TISSUE ABSCESS 4TH TOE DRAINED MRI NO OSTEOMYELITIS - Current Medication List Current Medications: Active Medications Acetaminophen (Tylenol -) 650 mg PO Q6H PRN PRN Reason: PAIN LEVEL 1-5 Enoxaparin Sodium (Lovenox -) 40 mg SQ DAILY VICKY Last Admin: 08/29/18 11:21 Dose: 40 mg Vancomycin HCl (Vancomycin (Pre-Docked)) 1,000 mg in 250 mls @ 166.667 mls/hr IVPB Q12H VICKY; Protocol Last Admin: 08/29/18 13:18 Dose: 166.667 mls/hr Ketorolac Tromethamine (Toradol) 10 mg PO Q6HPO PRN PRN Reason: PAIN LEVEL 7 - 10 Stop: 08/31/18 17:59 - Objective Vital Signs: Vital Signs Temperature 98.0 F 08/29/18 14:54 Pulse Rate 70 08/29/18 14:54 Respiratory Rate 20 08/29/18 14:54 Blood Pressure 121/82 08/29/18 14:54 O2 Sat by Pulse Oximetry (%) 97 08/28/18 21:00 Constitutional: Yes: No Distress Cardiovascular: Yes: Regular Rate and Rhythm, S1, S2 Respiratory: Yes: CTA Bilaterally Extremities: Yes: Other (R FOOT SWELLING / ERYTHEMA NEARLY ALL RESOLVED) Labs: CBC, BMP 08/29/18 06:35 08/29/18 06:35 Assessment/Plan CELLULITIS/ ST ABSCESS R FOOT + WOUND C/S MRSA SUBSTITUTE BACTRIM DS PO BID X 7D
[2018-08-29] MEDS: SULFAMETHOXAZOLE/TRIMETHOPRIM 800MG/160MG D.S. TABLET PO SCH (22:11)
[2018-08-30 07:38] LABS: BASO % 0.7 % (0-2.0); EOS % 6.1 % (0-4.5); HEMATOCRIT 40.3 % (35.4-49); HEMOGLOBIN 14.3 GM/dL (11.7-16.9); LYMPH % 29.4 % (8-40); MCH 29.3 pg (25.7-33.7); MCHC 35.5 g/dl (32.0-35.9); MEAN CELL VOLUME 82.7 fl (80-96); MEAN PLT VOLUME 7.3 fl (7.5-11.1); MONO % 7.6 % (3.8-10.2); NEUT % 56.2 % (42.8-82.8); PLATELET COUNT 336 K/MM3 (134-434); RBC 4.87 M/mm3 (4.00-5.60); RDW 13.3 % (11.9-15.9); WHITE BLOOD COUNT 5.7 K/mm3 (4.0-10.0)
[2018-08-30 08:18] LABS: POTASSIUM 4.1 mmol/L (3.5-5.1)
[2018-08-30 08:48] LABS: ALBUMIN 3.6 g/dl (3.4-5.0); BILIRUBIN,TOTAL 0.3 mg/dL (0.2-1); BLOOD UREA NITROGEN 12.5 mg/dL (7-18); CREATININE 0.8 mg/dL (0.55-1.3); MAGNESIUM 2.4 mg/dL (1.8-2.4); TOT PROT 6.8 g/dl (6.4-8.2)
--- NOTE | 2018-08-30 09:13 | DS ---
Physical Exam: SUBJECTIVE: Patient seen and examined at the bedside. Patient aware that he must follow up with a PCP or go to the [facility] clinic of discharge. He is uninsured an he can present to these clinics for low cost options. OBJECTIVE: wound care performed by me: cleansed right foot 4th toe with sterile water, apply sterile bandages to avoid friction with shoes. Patient taught how to clean wound and encouraged to have follow up with [facility] clinic or Dr. Boone to assure that the wound is healing. Bactrim for 6 more days at a cost of $4.00 per [facility] pharmacist Vital Signs Period Temp Pulse Resp BP Sys/Dsouza Pulse Ox Last 24 Hr 97.6 F-98.9 F 64-74 20-20 116-135/65-93 97-97 PHYSICAL EXAM GENERAL: The patient is awake, alert, and fully oriented, in no acute distress. HEAD: Normal with no signs of trauma. EYES: PERRL, extraocular movements intact, sclera anicteric, conjunctiva clear. ENT: Ears normal, nares patent, oropharynx clear without exudates, moist mucous membranes. NECK: Trachea midline, full range of motion, supple. LUNGS: Breath sounds equal, clear to auscultation bilaterally, no wheezes, no crackles, no accessory muscle use. HEART: Regular rate and rhythm ABDOMEN: Soft, nontender, nondistended, normoactive bowel sounds, no guarding, no rebound, no hepatosplenomegaly, no masses. EXTREMITIES: right foot 4th toe cellulitis. NEUROLOGICAL: Normal speech, gait not observed. PSYCH: Normal mood, normal affect. LABS Laboratory Results - last 24 hr 08/30/18 08/30/18 06:50 06:50 WBC 5.7 RBC 4.87 Hgb 14.3 Hct 40.3 MCV 82.7 MCH 29.3 MCHC 35.5 RDW 13.3 Plt Count 336 MPV 7.3 L Absolute Neuts (auto) 3.2 Neutrophils % 56.2 Lymphocytes % 29.4 Monocytes % 7.6 Eosinophils % 6.1 H Basophils % 0.7 Nucleated RBC % 0 Sodium 140 Potassium 4.1 Chloride 106 Carbon Dioxide 28 Anion Gap 6 L BUN 12.5 Creatinine 0.8 Est GFR (CKD-EPI)AfAm 128.60 Est GFR (CKD-EPI)NonAf 110.96 Random Glucose 87 Calcium 9.0 Magnesium 2.4 Total Bilirubin 0.3 AST 35 ALT 70 H Alkaline Phosphatase 88 Total Protein 6.8 Albumin 3.6 HOSPITAL COURSE: Date of Admission:08/25/18 Date of Discharge: 08/30/18 Right foot/4th toe cellulitis s/p I&D at bedside by Dr Martinez, no drainage noted wound cx with MSSA no osteo seen on MRI wound cleansed by me, and patient shown how to do his own wound care discharge home Minutes to complete discharge: 60 Discharge Summary Reason For Visit: CELLULITIS AND ABSCESS OF FOOT Current Active Problems Cellulitis and abscess of foot (Acute) Diabetes mellitus (Acute) Diabetes mellitus (Acute) Prophylactic measure (Acute) Condition: Improved - Instructions Diet, Activity, Other Instructions: Mr Ken Corona: You were admitted for cellulitis of your toe and we will be discharging you home with the following instructions: What is cellulitis? Cellulitis is an infection that forms under your skin. The treatment is antibiotics. Cellulitis can spread to the bone if left untreated. You will be sent home with Bactrim (antibiotic) TWICE per day for 6 more days. Follow up: Please Call Dr Boone and make an appointment. It is important that you follow up. His office number is attached to your discharge instructions. You can also go to the [facility] clinic after discharge. Thank you for allowing is to care for you. Wound care: Keep your foot wound dry. clean with Normal saline and apply sterile dressing. You must have someone look at your foot to make sure that the antibiotics are working and that your wound is healed (Please call Dr. Boone) for an appointment. [facility] clinic also offers low cost. [facility] [employer]CH[employer]ICAL [employer] [phone] [facility] ] Referrals: Alberto Webber MD [Staff Physician] - 2 Weeks Disposition: HOME - Home Medications Comprehensive Discharge Medication List: Ambulatory Orders Sulfamethoxazole/Trimethoprim [Bactrim DS -] 1 each PO BID #12 tablet 08/30/18 Problem List - Problems (1) Cellulitis and abscess of foot Code(s): L03.119 - CELLULITIS OF UNSPECIFIED PART OF LIMB; L02.619 - CUTANEOUS ABSCESS OF UNSPECIFIED FOOT (2) Prophylactic measure Code(s): Z29.9 - ENCOUNTER FOR PROPHYLACTIC MEASURES, UNSPECIFIED This patient is new to me today: No Emergency Visit: Yes ED Registration Date: 08/25/18 Care time: The patient presented to the Emergency Department on the above date and was hospitalized for further evaluation of their emergent condition. Critical Care patient: No - Discharge Referral Referred to [facility] No
[2018-08-30] MEDS ORDERED: PT OWN MED DRAWER 7, Y5N ONE (09:46)
[2018-08-30] MEDS: SULFAMETHOXAZOLE/TRIMETHOPRIM 800MG/160MG D.S. TABLET PO SCH (10:11)
[2018-08-30] MEDS: ENOXAPARIN NA (PORCINE) 40 MG/0.4 ML DISP.SYRIN SQ SCH (10:11)
[2018-08-30 19:35] VITALS: BP 133/74; PULSE 72; TEMP 98.7
== END 2018-08-30 10:26 | disposition home or self-care (01) | DRG 383 ==
LOC: JER 20:17 → JERBED 08-25 01:29 → OBSVTOIN 08-25 03:17 → J7W 08-25 05:20 → J5S 08-26 12:31
PROVIDERS: ADMIT Internal Medicine; ATTEND Nurse Practitioner Family
PROC: 0Y9M0ZX Drainage of Right Foot, Open Approach, Diagnostic (ICD-10-PCS; principal; 2018-08-28)
DX: L03.115 Cellulitis of right lower limb (principal); E66.9 Obesity, unspecified; Z68.30 Body mass index [BMI] 30.0-30.9, adult; L02.611 Cutaneous abscess of right foot; R13.10 Dysphagia, unspecified; B35.8 Other dermatophytoses; T69.021A Immersion foot, right foot, initial encounter; E11.9 Type 2 diabetes mellitus without complications; K21.9 Gastro-esophageal reflux disease without esophagitis; S91.301A Unspecified open wound, right foot, initial encounter
CPT/HCPCS: 36415; 73610-TC-RT-FY; 73630-TC-RT-FY; 73721-RT-TC; 80048; 80053; 83036; 83735; 85025; 85651; 87040; 87070; 87186; 87205; 97116-GP; 97161-GP; 99283-25; G0378

== ENCOUNTER 2022-10-21 15:44 | Emergency (ER) | payer OTHER ==
[2022-10-21 15:59] VITALS: BP 119/84; PULSE 79; RESP 19; TEMP 98.3; BMI 28.3
[2022-10-21] MEDS ORDERED: FAMOTIDINE 20 MG TABLET PO ONE (17:33)
[2022-10-21] MEDS ORDERED: MAG HYDROX/AL HYDROX/SIMETH 30 ML UNIT-DOSE CUP PO ONE (17:37)
[2022-10-21] MEDS ORDERED: MAG HYDROX/AL HYDROX/SIMETH 30 ML UNIT-DOSE CUP ONE (17:46)
[2022-10-21] MEDS ORDERED: FAMOTIDINE 20 MG TABLET ONE (17:46)
[2022-10-21 18:02] LABS: BASO % 0.6 % (0-2.0); EOS % 0.6 % (0-4.5); HEMATOCRIT 43.8 % (35.4-49); HEMOGLOBIN 14.9 GM/dL (11.7-16.9); LYMPH % 21.8 % (8-40); MCH 28.4 pg (25.7-33.7); MCHC 34.1 g/dl (32.0-35.9); MEAN CELL VOLUME 83.3 fl (80-96); MEAN PLT VOLUME 7.7 fl (7.5-11.1); PLATELET COUNT 287 10^3/uL (134-434); RBC 5.26 M/mm3 (4.00-5.60); RDW 13.5 % (11.9-15.9); WHITE BLOOD COUNT 8.4 K/mm3 (4.0-10.0)
[2022-10-21 18:29] LABS: BLOOD UREA NITROGEN 12.5 mg/dL (7-18); CALCIUM 9.1 mg/dL (8.5-10.1)
[2022-10-21 18:30] LABS: ALBUMIN 4.2 g/dl (3.4-5.0)
[2022-10-21 18:33] LABS: CREATININE 0.7 mg/dL (0.55-1.3)
[2022-10-21 18:34] LABS: BILIRUBIN,TOTAL 0.7 mg/dL (0.2-1); TOT PROT 7.8 g/dl (6.4-8.2)
== END 2022-10-21 19:07 | disposition home or self-care (01) ==
LOC: JERFT 15:44
DX: R05.9 Cough, unspecified (principal); K21.00 Gastro-esophageal reflux disease with esophagitis, without bleeding
CPT/HCPCS: 36415; 71046-TC-FY; 80053; 85025; 99284-25

== ENCOUNTER 2022-12-18 04:15 | Emergency (ER) | payer OTHER ==
[2022-12-18 04:26] VITALS: BP 132/79; PULSE 99; RESP 18; TEMP 98.5; BMI 26.9
[2022-12-18] MEDS ORDERED: SODIUM CHLORIDE 0.9% 500 ML INFUS.BAG IV ONE (05:12)
[2022-12-18] MEDS ORDERED: ACETAMINOPHEN 1000 MG/100 ML BAG IVPB ONE (05:21)
[2022-12-18] MEDS ORDERED: ACETAMINOPHEN INJECTION 100 ML IVPB ONE (05:30)
[2022-12-18 05:59] LABS: BASO % 0.4 % (0-2.0); EOS % 0.9 % (0-4.5); HEMATOCRIT 45.3 % (35.4-49); HEMOGLOBIN 15.3 GM/dL (11.7-16.9); LYMPH % 16.5 % (8-40); MCH 27.8 pg (25.7-33.7); MCHC 33.7 g/dl (32.0-35.9); MEAN CELL VOLUME 82.7 fl (80-96); MEAN PLT VOLUME 7.4 fl (7.5-11.1); NEUT % 75.2 % (42.8-82.8); PLATELET COUNT 296 10^3/uL (134-434); RBC 5.48 M/mm3 (4.00-5.60); RDW 13.6 % (11.9-15.9); WHITE BLOOD COUNT 6.7 K/mm3 (4.0-10.0)
[2022-12-18 06:09] LABS: INR 1.12 (0.83-1.09)
[2022-12-18 06:12] LABS: ACTIVATED PTT 35.9 SECONDS (25.2-36.5)
[2022-12-18 06:28] LABS: ALBUMIN 4.6 g/dl (3.4-5.0); BLOOD UREA NITROGEN 12.7 mg/dL (7-18); CALCIUM 9.2 mg/dL (8.5-10.1); MAGNESIUM 2.2 mg/dL (1.8-2.4)
[2022-12-18 06:29] LABS: CREATININE 0.7 mg/dL (0.55-1.3)
[2022-12-18 06:31] LABS: BILIRUBIN,TOTAL 0.9 mg/dL (0.2-1)
[2022-12-18 07:52] LABS: PH,URINE 5.5 (5.0-8.0); URINE APPEARANCE CLEAR; URINE BILIRUBIN NEGATIVE (NEGATIVE); URINE COLOR YELLOW; URINE GLUCOSE (UA) NEGATIVE (NEGATIVE); URINE KETONE 3+ (NEGATIVE); URINE LEUK ESTERASE NEGATIVE (NEGATIVE); URINE NITRITE NEGATIVE (NEGATIVE); URINE PROTEIN NEGATIVE (NEGATIVE); URINE UROBILINOGEN 0.2 mg/dL (0.2-1.0)
== END 2022-12-18 07:10 | disposition home or self-care (01) ==
LOC: JER 04:15
PROC: 3E033NZ Introduction of Analgesics, Hypnotics, Sedatives into Peripheral Vein, Percutaneous Approach (ICD-10-PCS; principal; 2022-12-18)
DX: R68.83 Chills (without fever) (principal); H53.8 Other visual disturbances; R00.2 Palpitations; R07.89 Other chest pain; K59.00 Constipation, unspecified; R19.7 Diarrhea, unspecified; R11.2 Nausea with vomiting, unspecified; M79.10 Myalgia, unspecified site; R51.9 Headache, unspecified; R20.0 Anesthesia of skin; U07.1 COVID-19
CPT/HCPCS: 0241U-QW; 36415; 80053; 81003; 83690; 83735; 84439; 84443; 84484; 85025; 85610; 85730; 87086; 93005; 93010; 99284-25